=== PATIENT | male | born 1970 | race African-American/Black ===

== ENCOUNTER 2017-08-07 06:22 | Observation (INO) | payer OTHER ==
[~2017-08-07 06:22] MED LIST: Buffered Lidocaine 0.9% SYRIN* 5 ML/SYR SYRINGE INTRADERM ONE; Dexamethasone IV* 4 MG/ML 1 ML (4 MG) IV SLOW PU ONE; Famotidine IV* 10 MG/ML 2 ML (20 mg) IV ONE
[2017-08-07] MEDS ORDERED: Dexamethasone IV* 4 MG/ML 1 ML (4 MG) ONE (06:50)
[2017-08-07] MEDS ORDERED: ceFAZolin 2 GM PREMIX (*) 2 GM/50 ML BAG IVPB ONE (06:51)
[2017-08-07] MEDS ORDERED: Buffered Lidocaine 0.9% SYRIN* 5 ML/SYR SYRINGE ONE (06:51)
[2017-08-07] MEDS ORDERED: Famotidine TAB* 20 MG ONE (06:51)
[2017-08-07] MEDS ORDERED: Lidocaine 2% PF * 5 ML VIAL ONE (06:55)
[2017-08-07] MEDS ORDERED: Rocuronium* 10 MG/ML VIAL ONE (06:55)
[2017-08-07] MEDS ORDERED: Propofol* 10 MG/ML 20 ML BTL IV PUSH ONE (06:55)
[2017-08-07] MEDS ORDERED: fentaNYL* 50 MCG/ML 2 ML VIAL (100 MCG VIAL) ONE ×3 (07:08→11:19)
[2017-08-07] MEDS ORDERED: Midazolam* 1 MG/ML 5 ML VIAL (5 MG) ONE (07:08)
[2017-08-07] MEDS ORDERED: Thrombin 5,000 UNITS* 1 APPLIC KIT - topical use - TOPICAL ONE (07:09)
[2017-08-07] MEDS ORDERED: Lidocain 1% EPI 1:100,000 * 30 ML MDV ONE (07:09)
[2017-08-07] MEDS ORDERED: Bacitracin IV* 50,000 UNITS INJ ONE (07:10)
[2017-08-07] MEDS ORDERED: EPHEDrine (Pressors)* 50 MG/ML VIAL ONE (07:55)
[2017-08-07] MEDS ORDERED: PROCHLORPERAZINE INJ 5 MG/ML 2 ML VIAL IV PRN (08:26)
[2017-08-07] MEDS ORDERED: oxyCODONE/Acetamin 5/325 MG* TAB PO PRN (08:26)
[2017-08-07] MEDS ORDERED: fentaNYL* 50 MCG/ML 2 ML VIAL (100 MCG VIAL) IV PRN (08:26)
[2017-08-07] MEDS ORDERED: HYDROcodone/ACETAMIN 5-325 MG* 1 TAB PO PRN (08:26)
[2017-08-07] MEDS ORDERED: Naloxone* 0.4 MG/ML 1 ML VIAL IV PRN (08:26)
[2017-08-07] MEDS ORDERED: Ketorolac INJ* 30 MG/ML 1 ML VIAL ONE (08:31)
[2017-08-07] MEDS ORDERED: Ondansetron INJ* 2 MG/ML VIAL ONE (09:56)
[2017-08-07] MEDS ORDERED: Acetaminophen TAB* 325 MG PO PRN (10:16)
[2017-08-07] MEDS ORDERED: Magnesium Hydroxide LIQ* 30 ML UDC PO PRN (10:16)
[2017-08-07] MEDS ORDERED: Ondansetron INJ* 2 MG/ML VIAL IV PRN (10:16)
[2017-08-07] MEDS ORDERED: Mouth Piece, Nicotine* 1 EACH CARTRIDGE INH PRN (10:23)
[2017-08-07] MEDS ORDERED: Nicotine Inhaler* 10 MG AMP INH PRN (10:23)
--- NOTE | 2017-08-07 13:19 | RAD ---
HISTORY: Anterior cervical discectomy and fusion COMPARISONS: None VIEWS: 1, portable intraoperative view of the cervical spine at 17 a.m. FINDINGS: A single portable intraoperative view of the cervical spine is submitted, performed at 8:17 AM. The images submitted for review at 1:15 PM on August 07, 2017. A needle is noted within the intervertebral disc space of C5-C6. IMPRESSION: LIMITED PORTABLE VIEW OF THE CERVICAL SPINE FOR LOCALIZATION DURING SPINAL SURGERY.
[2017-08-07] MEDS: Nicotine PATCH 21 MG/24 HR* PATCH TRANSDERM SCH (13:47)
[2017-08-07] MEDS ORDERED: Benzocaine/Menthol LOZ* 1 LOZENGE PO PRN (14:42)
[2017-08-07] MEDS: HYDROcodone/ACETAMIN 5-325 MG* 1 TAB PO PRN ×2 (17:16→21:35)
[2017-08-08] MEDS ORDERED: Nicotine Patch Removal NOTE FOLLOW UP SCH (06:00)
--- NOTE | 2017-08-08 07:44 | PN ---
Progress Note - Progress Note Date of Service: 08/08/17 SOAP: Subjective: [] POD # 1 Doing well Slight incisional pain Minimal drain output Objective: []Neuro intact Drain removed Assessment: []Satis post op course Plan: []D/C today D/C Instructions given
[2017-08-08] MEDS: HYDROcodone/ACETAMIN 5-325 MG* 1 TAB PO PRN (08:10)
--- NOTE | 2017-08-08 08:15 | RAD ---
INDICATION: Postop imaging after anterior cervical dissecting me and fusion at C5/C6 and C6/C7. COMPARISON: None. TECHNIQUE: Axial source images were acquired with coronal and sagittal reformatting. FINDINGS: Streak artifact from the intervertebral disc prostheses at C5/C6 and C6/C7 causes severe streak artifact that limits evaluation at these levels. A plate and screw fixator with prosthetic intervertebral discs is seen from C5 to C7 and anatomic position. Expected postsurgical changes include subcutaneous gas overlying the right neck and superior most mediastinum. Within the soft tissues anterior to the cervical spine there is fluid attenuation from C2 to C7 measuring 1.1 cm in width (sagittal image 41 of 90). There is no hyperattenuating material in the thecal sac to indicate intrathecal hemorrhage. There is straightening of the normal cervical lordosis in the lateral view. The vertebral bodies and facet joints are otherwise appropriately aligned. There is no acute fracture or focal bony lesion. The odontoid and the atlantodental interval are normal. At C2/C3 there is mild protrusion of the intervertebral disc eccentric towards the right distorting the ventral thecal sac but not causing any severe central canal or neural foraminal stenosis. The visualized soft tissue elements of the neck are normal. The visualized lung apices are clear. IMPRESSION: 1. POSTSURGICAL CHANGES INCLUDE ANATOMIC ALIGNMENT OF PROSTHETIC INTERVERTEBRAL DISCS AND ANTERIOR PLATE AND SCREW FIXATOR FROM C5 TO C7 IN ANATOMIC ALIGNMENT. 2. IMAGES ARE SOMEWHAT COMPROMISED BY STREAK ARTIFACT CAUSED BY STREAK ARTIFACT FROM THE INTERVERTEBRAL PROSTHESES, BUT THERE IS A RETROPHARYNGEAL FLUID COLLECTION MEASURING UP TO 1.1 CM IN AP WITH FROM C3 TO C5.
[2017-08-08 08:17] VITALS: BP 137/70
[2017-08-08] MEDS: Nicotine PATCH 21 MG/24 HR* PATCH TRANSDERM SCH (10:34)
--- NOTE | 2017-08-08 16:35 | DS ---
DISCHARGE SUMMARY: DATE OF ADMISSION: 08/07/17 DATE OF DISCHARGE: 08/08/17 SUPERVISING PHYSICIAN: Dr. Matute.* (DICTATED BY NADIRA WANG) DISCHARGE DIAGNOSES: Cervical spondylosis C5-6 and C6-7. SPECIAL PROCEDURES: Anterior cervical diskectomy infusion C5-6 and C6-7 with anterior instrumentation. HOSPITAL COURSE: This 47-year-old male was seen in office with a several years history of neck pain and worsening since onset. He has failed to improve with customer care manager and conservative treatment. He was referred for neurosurgical evaluation and treatment with surgery was discussed. He started to proceed with this option. On the day of admission, he was taken to surgery where under general anesthesia, an anterior cervical diskectomy fusion at C5-6 and C6-7 operation was carried out. Postoperatively, he was feeling well and the neck pain was well controlled with oral pain medications. He is eating soft foods and drinking without difficulty. On the first postoperative day, the wound drain was discontinued and the patient was [facility]. Discharge instructions including wound care and activity level were discussed with the patient and provided for the providers at the correctional facility. Pain medication recommendations were also made. He will be seen in office in approximately 2 weeks for followup. NADIRA WANG [id number]/[facility] #: [id number] MTDD
--- NOTE | 2017-08-10 10:55 | OP ---
OPERATIVE REPORT: DATE OF OPERATION: 08/07/17 DATE OF : 68 PRIMARY SURGEON: John Matute MD STEEL PICKLER: NADIRA Preciado ANESTHESIA: General. PRE-OP DIAGNOSIS: Cervical spondylosis, C5-6, C6-7. POST-OP DIAGNOSIS: Cervical spondylosis, C5-6, C6-7. OPERATIVE PROCEDURE: Anterior cervical diskectomy and fusion with PEEK interbody spacers and anterio r instrumentation. DESCRIPTION OF PROCEDURE: After satisfactory general anesthesia was obtained, the patient was placed on the operating table in the supine position with the head supported on a horseshoe headrest and th e neck slightly extended. The anterior aspect of the cervical spine was then clipped, prepped, and d raped in a sterile manner for anterior cervical exposure and a skin incision outlined over the C6 lev el beginning at the midline and extending to the right side, a distance of 3 cm. This incision was in filtrated with 1% Xylocaine with epinephrine, after which it was turned down sharply to the level of the subcutaneous tissues. A superior and inferiorly based subcutaneous flap was then fashioned and t he platysmal muscle divided along the direction of its fibers. Utilizing a combination of sharp and blunt dissection, the dissection plane was carried down between the sternocleidomastoid and strap mus cles down to the anterior aspect of the spine. An intraoperative radiograph was obtained verifying l ocalization of the C5-6 interspace, after which the attachment of the longus colli muscle was taken d own and self-retaining retractors were placed to facilitate exposure. The initial step in the proced ure was removal of the anterior two-thirds of disk material at C5-6. An anterior osteophyte was remov ed with a drill as well. After removing the anterior two-thirds of disk material, [place] distractor pins were placed in the C5 and C6 vertebral bodies and gentle disk space distraction applied. The op erating microscope was then brought into the field and the remainder of the procedure done under micr oscopic visualization. Projecting back posteriorly was a spur disk complex with the spur primarily c oming off the superior aspect of the C6 body. This was decompressed utilizing a combination of the OptMed alford Vik drill as well as Kerrison rongeurs. This was carried back posteriorly until normal dura was encountered. At the conclusion of the decompression, a nerve hook would go out readily with both C6 nerve roots. The interspace was then prepared for a receipt of an 8-mm PEEK graft filled with bone p utty and slightly countersunk. Attention was then directed to C6-7 level, where a very large osteoph yte was noted to be present. This osteophyte was drilled down and removed, after which the anterior two-thirds of disk material was removed from this level as well. This level had a very collapsed dis k space with a much more prominent spur. Utilizing the Midas Vik drill, 1- and 2-mm Kerrisons, the d ecompression was carried out until ultimately the dura was encountered. At the conclusion of the dec ompression, the nerve root would go out readily with both C7 nerve roots. At this interspace, an 8-m m PEEK graft was also inserted and slightly countersunk. The wound was then thoroughly irrigated, af ter which a Zenith Epigeneticstronic ZEVO plate was selected to span from C5 to C7. This was secured into position w ith 13-mm screws, 2 each in the C5, C6, and C7 vertebral bodies. A drain was then placed in th e prevertebral space and tunneled out toward the right side. Subcutaneous tissues were then reapprox imated with 3-0 Vicryl and the skin closed with Steri-Strips. The estimated blood loss was less than 50 cc and the final sponge, padding, and needle counts were correct. The patient was taken to the re covery room, extubated, and in stable condition. [id number]/[facility] #: [id number]
== END 2017-08-08 13:15 ==
LOC: OR 06:22 → SSU 10:17 → UNDOADMOB 11:54 → EEVIPCON 11:54 → SSU 11:54
PROVIDERS: ADMIT Neurological Surgery; ATTEND Neurological Surgery
PROC: 0RG20A0 Fusion of 2 or more Cervical Vertebral Joints with Interbody Fusion Device, Anterior Approach, Anterior Column, Open Approach (ICD-10-PCS; 2017-08-07)
PROC: 0RG20J1 Fusion of 2 or more Cervical Vertebral Joints with Synthetic Substitute, Posterior Approach, Posterior Column, Open Approach (ICD-10-PCS; 2017-08-07)
PROC: 0RB30ZZ Excision of Cervical Vertebral Disc, Open Approach (ICD-10-PCS; principal; 2017-08-07 07:30)
DX: M47.812 Spondylosis without myelopathy or radiculopathy, cervical region (principal); M54.2 Cervicalgia; F17.210 Nicotine dependence, cigarettes, uncomplicated
CPT/HCPCS: 72020; 72125; A9270-GY; C1713; C1776; G0378; J0690; J1100; J1885; J2250; J2405; J2704; J3010

== ENCOUNTER 2017-08-16 10:42 | Emergency (ER) | payer OTHER ==
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
[2017-08-16] MEDS ORDERED: Nabumetone TAB* 500 MG PO ONE (16:24)
[2017-08-16] MEDS: Cephalexin CAP* 500 MG PO ONE ×2 (17:20)
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
[2017-08-16] MEDS ORDERED: HYDROcodone/ACETAMIN 5-325 MG* 1 TAB PO ONE (19:43)
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
[2017-08-16 22:30] VITALS: BP 161/80
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
== END 2017-08-16 22:30 | disposition home or self-care (01) ==
LOC: ED 10:42
DX: S01.81XA Laceration without foreign body of other part of head, initial encounter (principal); S11.91XA Laceration without foreign body of unspecified part of neck, initial encounter; R03.0 Elevated blood-pressure reading, without diagnosis of hypertension; S09.90XA Unspecified injury of head, initial encounter; S00.83XA Contusion of other part of head, initial encounter; T81.30XA Disruption of wound, unspecified, initial encounter; Y09 Assault by unspecified means; Y92.149 Unspecified place in prison as the place of occurrence of the external cause; F17.210 Nicotine dependence, cigarettes, uncomplicated
CPT/HCPCS: 12001; 70450; 70486; 72125; 72141; 99283; A9270-GY